=== PATIENT | female | born 1955 | race Caucasian/White ===

== ENCOUNTER → 2021-02-01 | Outpatient (CLI) | payer MEDICARE ==
--- NOTE | 2021-02-01 11:22 | REPMRS ---
Patient History The patient states she had a clinical breast exam in 01/2021. Patient is postmenopausal. No known family history of cancer. No Hormone Replacement Therapy Digital Woman Screen Mammo: February 01, 2021 - Exam #: [id number] Bilateral CC and MLO view(s) were taken. Technologist: Elinor Nunez, Technologist No prior studies available for comparison. FINDINGS: The breast tissue is almost entirely fat. The [facility] volumetric breast density category is: A. There are 2 left axillary lymph nodes which appear somewhat asymmetric. Patient gives a history of recent spider bite at 9 o'clock position left breast and recent COVID vaccination left arm. These lymph nodes are most likely reactive. Suggest left axillary sonography be performed to further evaluate the axilla and to establish a baseline for short interval follow-up. There is no evidence of dominant mass, architectural distortion, or grouped microcalcification typical of malignancy. 3-D tomosynthesis shows no additional findings. Assessment: BI-RADS/ACR category 0 mammogram, Incomplete. Need additonal imaging evaluation and/or prior mammograms for comparison. Recommendation Ultrasound of the left breast. This patient's [facility] Lifetime Breast Cancer RIsk is estimated at 4.9 %. This mammogram was interpreted with the aid of an FDA-approved computer-aided dectection system. Electronically Signed By: Remy Cote MD 02/01/21 [id number]
== END ==
LOC: M WHC 09:16
PROVIDERS: ATTEND Nurse Practitioner Family
DX: Z01.411 Encounter for gynecological examination (general) (routine) with abnormal findings (principal); Z12.31 Encounter for screening mammogram for malignant neoplasm of breast; Z78.0 Asymptomatic menopausal state
CPT/HCPCS: 77063; 77067; 87210; 87624; G0101; G0123

== ENCOUNTER → 2021-02-01 | Outpatient (REF) | payer MEDICARE | LOC: M SFHCWAGY 13:19 | PROVIDERS: ATTEND Nurse Practitioner Family | DX: Z12.4 Encounter for screening for malignant neoplasm of cervix (principal); R87.610 Atypical squamous cells of undetermined significance on cytologic smear of cervix (ASC-US) ==

== ENCOUNTER → 2021-02-14 | Outpatient (CLI) | payer MEDICARE ==
--- NOTE | 2021-02-14 09:16 | REP ---
INDICATION: ADDITIONAL VIEWS LT BREAST. COMPARISON: MAMMOGRAM 02/01/2021. TECHNIQUE: Real-time sonographic evaluation of left axilla performed. FINDINGS: Several lymph nodes are seen in the left axilla. One of the larger lymph nodes demonstrates an abundant echogenic fatty hilum, and measures 1.9 x 0.9 x 2.3 cm, with no significant thickening of the cortex of the lymph node. Another of the largest lymph nodes demonstrates a mild amount of echogenic fat in the hilum and does demonstrate mild cortical thickening up to 6 mm. This measures 1.5 x 0.7 x 2.7 cm. There is a round hypoechoic nodule with hyperemic flow with Doppler evaluation, likely a lymph node with no significant internal fat. This measures 1.0 x 0.8 x 0.9 cm. IMPRESSION: BIRADS/ACR category 3, probably benign. Mildly prominent lymph nodes in the left axilla as discussed in detail above. Given the clinical history of spider bite on the left breast and COVID vaccine 1st dose administered 01/10/2021 in the left arm, these are most likely reactive lymph nodes. RECOMMENDATION: Recommend follow-up left axillary ultrasound in 3 months. <Electronically signed by Wilfrid Garcia > 02/14/21 [id number]
== END ==
LOC: M WHC 07:30
PROVIDERS: ATTEND Nurse Practitioner Family
DX: Z12.31 Encounter for screening mammogram for malignant neoplasm of breast (principal)

== ENCOUNTER → 2021-04-11 | Outpatient (REF) | payer MEDICARE | LOC: M SFHCWAGY 10:06 | PROVIDERS: ATTEND Nurse Practitioner Women's Health | DX: N76.0 Acute vaginitis (principal) | CPT/HCPCS: 87070; 87077; 87186; 87210; G0463 ==

== ENCOUNTER → 2021-05-17 | Outpatient (CLI) | payer MEDICARE ==
--- NOTE | 2021-05-17 14:03 | REP ---
INDICATION: R92.8 3 MO F/U,CAT 3, MILDLY PROMINENT LYMPH NODES. COMPARISON: Comparison sonography February 14, 2021. TECHNIQUE: It targeted left axillary sonography. FINDINGS: Left axillary sonography today again demonstrates several lymph nodes. The largest 3 lymph nodes visualized today measure as follows: 2.6 x 0.8 x 1.8, 1.3 x 0.6 by 2.2, and 0.8 x 0.6 x 0.7 cm. Two of these have decreased in size. The largest lymph node is felt to be unchanged in overall size. It has less visible cortical thickening on today's sonography. The 2 larger lymph nodes retain their fatty hilar architecture. The smaller lymph node is decreased in size. IMPRESSION: Previously noted lymph nodes have regressed. BI-RADS category 2 benign findings. Recommend repeat annual screening mammography in January of 2022. <Electronically signed by Remy Cote > 05/17/21 [id number]
== END ==
LOC: M WHC 12:57
PROVIDERS: ATTEND Nurse Practitioner Women's Health
DX: R59.0 Localized enlarged lymph nodes (principal)

== ENCOUNTER → 2021-05-22 | Outpatient (CLI) | payer MEDICARE | LOC: M SLEEP HO 11:17 | PROVIDERS: ATTEND Internal Medicine Cardiovascular Disease | DX: G47.30 Sleep apnea, unspecified (principal) ==

== ENCOUNTER → 2021-11-27 | Outpatient (CLI) | payer MEDICARE | LOC: M SLEEP 20:00 | PROVIDERS: ATTEND Physician Assistant | DX: G47.33 Obstructive sleep apnea (adult) (pediatric) (principal) ==

== ENCOUNTER → 2022-08-07 | Outpatient (CLI) | payer MEDICARE | LOC: M WHC 09:34 | PROVIDERS: ATTEND Family Medicine | DX: Z12.31 Encounter for screening mammogram for malignant neoplasm of breast (principal) ==

== ENCOUNTER → 2024-08-27 | Outpatient (CLI) | payer MEDICAID, MEDICARE | LOC: M PLAIMG 09:46 | PROVIDERS: ATTEND Internal Medicine Cardiovascular Disease | DX: I71.21 Aneurysm of the ascending aorta, without rupture (principal); I50.32 Chronic diastolic (congestive) heart failure; I27.23 Pulmonary hypertension due to lung diseases and hypoxia; I44.0 Atrioventricular block, first degree ==